=== PATIENT | female | born 2000 | race Caucasian/White ===

== ENCOUNTER 2021-12-29 10:43 | Outpatient (CLI) | payer OTHER, SELFPAY ==
[2021-12-29 19:04] LABS: Chlamydia DNA Amplified* NOT DETECTED (No Detected); GC DNA Amplified* NOT DETECTED (No Detected)
== END 2021-12-29 10:44 | disposition home or self-care (01) ==
LOC: NFLDREF 10:49
PROVIDERS: Visit Provider Physician Assistant
DX: Z01.419 Encounter for gynecological examination (general) (routine) without abnormal findings (principal); Z11.3 Encounter for screening for infections with a predominantly sexual mode of transmission
CPT/HCPCS: 87491; 87591